=== PATIENT | female | born 1975 | race Caucasian/White ===

== ENCOUNTER 2016-07-02 15:41 | Outpatient (CLI) | payer BC ==
[~2016-07-02] VITALS: Ht 172.7 cm; Wt 97.4 kg
[~2016-07-02 15:41] MED LIST: PAIN MEDS; PREN1TAB49
[2016-07-02 15:45] VITALS: BP 129/75; PULSE 52; RESP 16; Ht 172.7 cm; Wt 97.4 kg
--- NOTE | 2016-07-02 16:05 | PN ---
Date/Time of Note Date/Time of Note DATE: 07/02/16 TIME: 16:05 Outpatient Progress Note Chief Complaint Disregard Allergies Coded Allergies: No Known Allergy (Verified , 04/21/11) Medications Home Meds Reported Medications Vits W-Ca,Fe,Fa(<1MG) () 1 Tab Tablet, 1 04/22/11 [Pain Meds] TAB No Conflict Check 05/26/10 NBA AZEVEDO MD Jul 02, 2016 16:05 Endo: [No polyuria, no polydypsia, no dry-skin, no temp-intolerance.] Psych: [No hallucinations, no depression, no anxiety, no suicidal ideation.] Ext: [No edema, no pain, no ulcer, no weakness.] Physical Exam Vital Signs Date Time Temp Pulse Resp B/P Pulse Ox O2 Delivery O2 Flow Rate FiO2 07/02/16 15:45 98.5 52 16 129/75 97 Room Air General Appearance: A [AG] year-old [GD] [who appears well-developed, well- nourished, in no acute distress.] HEENT: [Head normocephalic, atraumatic. Pupils equal, round, reactive to light and accommodate. Sclerae are no jaundice. Nasal turbinates pink without erythema or nasal discharge. Mucous membranes pink and moist without lesions. Oropharynx clear without any exudate or discharge.] NECK: [Supple. Trachea midline, No thyromegaly, No cervical lymphadenopathy, No mass, No carotid bruits, No JVD, Carotid pulses 2+ bilaterally.] PULMONARY: [Clear to auscultaion bilaterally, No retractions, Chest expansion symmetric bilaterally, no rales, no ronchi, no dulness on percussion.] CARDIAC: [Normal SI and S2, Regular rate and rythm, no murmur, gallop, or rub.] GASTROINTESTINAL: [Abdomen is soft, non-tender, Non Rigid, No distention, Positive bowel sounds x4 quadrants, Liver normal.] SKIN: [Warm, dry, no rash, no bruise, no echmosis.] EXTREMITIES: [Bilateral lower extremities normal, no edema, no phlabitus, pulse palpable, no contracture.] MUSCULOSKELETAL: [Spine Normal, Non-tender, Normal range of motion, No swelling , no deformity, no clubbing, or cyanosis, the patient has no edema to bilateral lower extremities, dorsalis pedis pulses palpable bilaterally.] NEUROLOGIC: [The patient is awake, alert, oriented, responding to yes/no questions appropriately, moving all extremities, cranial nerve intact, normal strenght, normal power, normal coordination, normal gait.] Allergies Coded Allergies: No Known Allergy (Verified , 04/21/11) Medications Home Meds Reported Medications Vits W-Ca,Fe,Fa(<1MG) () 1 Tab Tablet, 1 04/22/11 [Pain Meds] TAB No Conflict Check 05/26/10 NBA AZEVEDO MD Jul 02, 2016 16:05
== END 2016-07-02 16:38 | disposition home or self-care (01) ==
LOC: DCC 15:41
PROVIDERS: ATTEND Internal Medicine
DX: O26.90 Pregnancy related conditions, unspecified, unspecified trimester (principal)
CPT/HCPCS: G0463